=== PATIENT | male | born 1960 | race African-American/Black ===

== ENCOUNTER 2020-03-11 17:22 | Inpatient (IN) | payer OTHER ==
--- NOTE | 2020-03-11 19:29 | BHS.RME ---
Substance Use & Tx History - Substance Use History Alcohol Substance amount: 4- 26 oz beers Frequency of use: Daily Substance route: Oral Date of Last Use: 03/10/20 Marijuana/Hashish Substance amount: 1 joint Frequency of use: Less than 3 times per week Substance route: Smoking Date of Last Use: 03/03/20 - Last Treatment Date of last treatment: 03/11/20 Treatment type: Substance Use Disorder (KATE) Where was last treatment: ER (Seen in [facility] today and referred to [facility] for detox.) Physical/Psych/Mental Status - Behavior General Behavior: Increased activity (restlessness, agitation) Eye Contact: Normal - Cooperativeness Cooperativeness: Cooperative - Thinking Thought Processes: Goal Directed Thought content: Future oriented - Physical Health Problems Is patient presently having any pain?: Yes (feeet pain - chronic) Does patient presently have any injuries (include location): No Does patient currently have a fever: No CIWA Nausea/Vomitin-Mild Nausea/No Vomiting Muscle Tremors: 4-Moderate,w/Arms Extend Anxiety: 4-Mod. Anxious/Guarded Agitation: 4-Moderately Restless Paroxysmal Sweats: 3 Orientation: 0-Oriented Tacttile Disturbances: 0-None Auditory Disturbances: 0-None Visual Disturbances: 0-None Headache: 4-Moderately Severe (Throbbig headache '8" -Frontal area) CIWA-Ar Total Score: 20
--- NOTE | 2020-03-11 19:33 | HP ---
CIWA Score Nausea/Vomitin-Mild Nausea/No Vomiting Muscle Tremors: 4-Moderate,w/Arms Extend Anxiety: 4-Mod. Anxious/Guarded Agitation: 4-Moderately Restless Paroxysmal Sweats: 3 Orientation: 0-Oriented Tacttile Disturbances: 0-None Auditory Disturbances: 0-None Visual Disturbances: 0-None Headache: 4-Moderately Severe (Throbbig headache '8" -Frontal area) CIWA-Ar Total Score: 20 - Admission Criteria OASAS Guidelines: Admission for Medically Managed Detox: Requires at least one of the followin. CIWA greater than 12 2. Seizures within the past 24 hours 3. Delirium tremens within the past 24 hours 4. Hallucinations within the past 24 hours 5. Acute intervention needed for co occurring medical disorder 6. Acute intervention needed for co occurring psychiatric disorder 7. Severe withdrawal that cannot be handled at a lower level of care (continued vomiting, continued diarrhea, abnormal vital signs) requiring intravenous medication and/or fluids 8. Patient presents the following: CIWA greater than 12 Admission Criteria Met: Admission criteria met Admission ROS [facility] - [facility] Chief Complaint: "I really need to stop this drinking. I'm so sick" Allergies/Adverse Reactions: Allergies Allergy/AdvReac Type Severity Reaction Status Date / Time No Known Allergies Allergy Verified 03/11/20 20:11 History of Present Illness: 59 yo w/ alcohol withdrawal seeking detox. Seen in [facility] today for alcohol withdrawal syndrome and referred to [facility] for detox. Discharge papers reviewed. Received Amlodopine, Libruim, folic acid, Ativan, and Thiamine while in [facility]. Labs drawn but no results enclosed. Denies seizures. Blackouts - last 1 month ago. Denies overdoses. Alcohol use began at age 17. Drinks 4- 26 oz beers daily. Marijuana use began at age 17. Nicotine use began at age 17. PMHx: Irregular heart beat; HTN; (non-compliant w/ meds); foot pain; Blind (R) eye; Hx COVID. MHHx: Depression. Denies thoughts of harming self or others. SHx: Homeless. Unemployed. Search Terms: Can Lantigua, 1960 Search Date: 03/11/2020 19:32:45 PM The Drug Utilization Report below displays all of the controlled substance prescriptions, if any, that your patient has filled in the last twelve months. The information displayed on this report is compiled from pharmacy submissions to the Department, and accurately reflects the information as submitted by the pharmacies. This report was requested by: Nati Stahl | Reference #: [id number] There are no results for the search terms that you entered. Exam Limitations: No Limitations - Ebola screening Have you traveled outside of the country in the last 21 days: No (Had COVID - 2 months ago.) Have you had contact with anyone from an Ebola affected area: No Have you been sick,other than usual withdrawal symptoms: No Do you have a fever: No - Review of Systems Constitutional: Chills, Diaphoresis, Changes in sleep (Difficulty staying asleep), Weight Stable EENT: reports: Blurred Vision, Other (Blind in (R) eye) Respiratory: reports: No Symptoms reported Cardiac: reports: Irregular Heart Rate (Heart pills - never filled.) GI: reports: Nausea, Vomiting (earlier today), Indigestion (Heart burn -) : reports: Other (Hesitentcy - has not had a exam) Musculoskeletal: reports: Back Pain (Intermittent back pain. No pain @ this time.), Other (Leg and hand spasms. Use cane for balance.) Integumentary: reports: No Symptoms Reported Neuro: reports: Headache (Throbbig headache '8" -Frontal area), Tremors Endocrine: reports: Increased Thirst Hematology: reports: No Symptoms Reported Psychiatric: reports: Orientated x3, Agitated, Anxious, Depressed (Denies thoughts of harming self or others.) Patient History - PPD History Previous Implant?: Yes Documented Results: Negative w/o proof Implanted On Prior R Admission?: No PPD to be Administered?: Yes - Smoking Cessation Smoking history: Never smoked Have you smoked in the past 12 months: No Hx Chewing Tobacco Use: No Initiated information on smoking cessation: No - Substance & Tx. History Hx Alcohol Use: Yes Hx Substance Use: Yes Substance Use Type: Alcohol, Marijuana Hx Substance Use Treatment: Yes (years ago) Admission Physical Exam BHS - Physical General Appearance: Yes: Nourished, Moderate Distress, Obese, Tremorous, Irritable, Sweating, Anxious HEENTM: Yes: Hearing grossly Normal, MAHENDRA ((L) pupil responds to light), Pharynx Normal, Orbits ((R) abnormal orbit/r/t trauma), Other ((R) no- vision r/t trauma) Respiratory: Yes: Lungs Clear, Normal Breath Sounds, No Respiratory Distress Neck: Yes: No masses,lesions,Nodules, Supple Breast: Yes: Breast Exam Deferred Cardiology: Yes: Regular Rhythm, S1, S2, Edema (1+ pittiing Edema BLE toes to mid-calf), Tachycardia (HR: 104) Abdominal: Yes: Non Tender, Soft, Increased Bowel Sounds, Protuberent (Increased abdominal adiposity) Genitourinary: Yes: Within Normal Limits Back: Yes: Normal Inspection Musculoskeletal: Yes: Other (gait unsteady) Extremities: Yes: Normal Capillary Refill, Tremors (Gross) Neurological: Yes: Fully Oriented, Alert, Motor Strength 5/5, Normal Response (Agitated) Integumentary: Yes: Normal Color, Dry (Very dry, scaly skin ovetr body.), Warm, Other (Severe cracking and thickeneing of skin on feet and between toes.) - Diagnostic (1) Alcohol dependence with withdrawal, uncomplicated Current Visit: Yes Status: Acute (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 Qualifiers: Left eye visual impairment category: left - unspecified low vision Qualified Code(s): H54.40 - Blindness, one eye, unspecified eye; H54.50 - Low vision, one eye, unspecified eye (3) HTN (hypertension) Current Visit: Yes Status: Chronic Qualifiers: Hypertension type: unspecified Qualified Code(s): I10 - Essential (primary) hypertension (4) Unsteady gait Current Visit: Yes Status: Chronic (5) Dry skin Current Visit: Yes Status: Chronic (6) Tinea pedis Current Visit: Yes Status: Chronic Qualifiers: Laterality: bilateral Qualified Code(s): B35.3 - Tinea pedis (7) Cannabis use disorder, mild, abuse Current Visit: Yes Status: Chronic (8) Edema Current Visit: Yes Status: Chronic Qualifiers: Edema type: unspecified Qualified Code(s): R60.9 - Edema, unspecified Cleared for Admission S - Detox or Rehab [facility] Level of Care: Medically Managed Detox Regimen/Protocol: Librium Claeared for Rehab Admission: No Breathalyzer - Breathalyzer Breathalyzer: 0 Urine Drug Screen - Test Device Lot number: [id number] Expiration date: 09/28/21 - Control Is test valid?: Yes - Results Drug screen NEGATIVE: No Urine drug screen results: THC-Marijuana Inpatient Rehab Admission - Rehab Decision to Admit Inpatient rehab admission?: No
[2020-03-11] MEDS ORDERED: BISMUTH SUBSALICYLATE 524 MG/30 ML UD PO PRN (20:11)
[2020-03-11] MEDS ORDERED: IBUPROFEN 400 MG TABLET (FP) PO PRN (20:11)
[2020-03-11] MEDS ORDERED: MAGNESIUM CITRATE 300 ML BOTTLE PO PRN (20:11)
[2020-03-11] MEDS ORDERED: METHOCARBAMOL 500 MG TABLET PO PRN (20:11)
[2020-03-11] MEDS ORDERED: MAGNESIUM HYDROX 2400MG/30ML ORAL SUSPENSION 30 ML CUP PO PRN (20:11)
[2020-03-11] MEDS ORDERED: MAG HYDROX/AL HYDROX/SIMETH 30 ML UNIT-DOSE CUP PO PRN (20:11)
[2020-03-11] MEDS ORDERED: ACETAMINOPHEN 325 MG TABLET (FP) PO PRN ×2 (20:11)
[2020-03-11] MEDS ORDERED: chlordiazePOXIDE HCL 25 MG CAPSULE PO ONE (20:11)
[2020-03-11] MEDS ORDERED: ONDANSETRON *ODT* 4 MG TABLET SL PRN (20:11)
[2020-03-11] MEDS ORDERED: MENTHOL/PHENOL 1 EACH UD MM PRN (20:11)
[2020-03-11] MEDS ORDERED: chlordiazePOXIDE HCL 25 MG CAPSULE PO PRN (20:11)
[2020-03-11] MEDS ORDERED: COLLOIDAL OATMEAL 1 BAR EACH TP PRN (20:14)
[2020-03-11] MEDS ORDERED: AMMONIUM LACTATE 12% LOTION 225 GM BOTTLE TP PRN (20:14)
[2020-03-11 20:39] VITALS: BMI 39.4
[2020-03-11] MEDS: chlordiazePOXIDE HCL 25 MG CAPSULE PO SCH (22:50)
[2020-03-11] MEDS: TOLNAFTATE 1% CREAM 15 GM TUBE TP SCH (22:50)
[2020-03-11] MEDS: THIAMINE HCL 100 MG TABLET (FP) PO SCH (22:51)
[2020-03-11] MEDS: MELATONIN 5 MG TABLETS PO SCH (22:54)
[2020-03-12] MEDS: chlordiazePOXIDE HCL 25 MG CAPSULE PO SCH ×4 (05:29→22:29)
--- NOTE | 2020-03-12 09:34 | EKG ---
Test Reason : Blood Pressure : / mmHG Vent. Rate : 104 BPM Atrial Rate : 104 BPM P-R Int : 140 ms QRS Dur : 084 ms QT Int : 366 ms P-R-T Axes : 063 052 053 degrees QTc Int : 481 ms SINUS TACHYCARDIA POSSIBLE LEFT ATRIAL ENLARGEMENT BORDERLINE ECG NO PREVIOUS ECGS AVAILABLE Confirmed by Lindsey Cox ([id number]) on 03/12/2020 9:33:51 AM Referred By: Confirmed By:Lindsey Cox
[2020-03-12] MEDS: PRENATAL VITAMINS W/ FOLIC ACID TABLET (FP) PO SCH (10:31)
[2020-03-12] MEDS: TOLNAFTATE 1% CREAM 15 GM TUBE TP SCH ×2 (10:31→22:29)
[2020-03-12] MEDS: HYDROCHLOROTHIAZIDE 12.5 MG CAPSULE (FP) PO SCH (10:32)
[2020-03-12 11:18] LABS: ALBUMIN 3.1 g/dl (3.4-5.0); BILIRUBIN,TOTAL 1.3 mg/dL (0.2-1); BLOOD UREA NITROGEN 14.4 mg/dL (7-18); CALCIUM 8.5 mg/dL (8.5-10.1); CREATININE 0.9 mg/dL (0.55-1.3); POTASSIUM 3.9 mmol/L (3.5-5.1); TOT PROT 6.6 g/dl (6.4-8.2)
[2020-03-12 11:46] LABS: HEMATOCRIT 32.7 % (35.4-49); HEMOGLOBIN 10.9 GM/dL (11.7-16.9); MCH 31.8 pg (25.7-33.7); MCHC 33.3 g/dl (32.0-35.9); MEAN CELL VOLUME 95.7 fl (80-96); MEAN PLT VOLUME 8.1 fl (7.5-11.1); PLATELET COUNT 138 K/MM3 (134-434); RBC 3.42 M/mm3 (4.00-5.60); RDW 13.8 % (11.9-15.9); WHITE BLOOD COUNT 2.9 K/mm3 (4.0-10.0)
--- NOTE | 2020-03-12 15:50 | PN ---
[facility] CIWA - CIWA Score Nausea/Vomitin Muscle Tremors: 2 Anxiety: 3 Agitation: 3 Paroxysmal Sweats: 3 Orientation: 0-Oriented Tacttile Disturbances: 1-Very Mild Itch/Numbness Auditory Disturbances: 0-None Visual Disturbances: 0-None Headache: 0-None Present CIWA-Ar Total Score: 14 [facility] Progress Note (SOAP) Subjective: Interrupted sleep Objective: 03/12/20 15:45 Last Vital Signs Temp Pulse Resp BP Pulse Ox 97.3 F L 86 16 145/75 97 03/12/20 12:35 03/12/20 12:35 03/12/20 12:35 03/12/20 12:35 03/12/20 12:35 Elevated b/p: has htn, on med Laboratory Tests 03/12/20 03/12/20 03/12/20 07:30 07:30 07:30 WBC 2.9 L RBC 3.42 L Hgb 10.9 L Hct 32.7 L MCV 95.7 MCH 31.8 MCHC 33.3 RDW 13.8 Plt Count 138 MPV 8.1 Sodium 140 Potassium 3.9 Chloride 108 H Carbon Dioxide 26 Anion Gap 6 L BUN 14.4 Creatinine 0.9 Est GFR (CKD-EPI)AfAm 107.22 Est GFR (CKD-EPI)NonAf 92.51 Random Glucose 93 Calcium 8.5 Total Bilirubin 1.3 H AST 30 ALT 37 Alkaline Phosphatase 60 Total Protein 6.6 Albumin 3.1 L Syphilis Serology Non-reactive Labs reviewed: pancytopenia, elevated total bilirubin and hypoalbuminemia noted Assessment: 03/12/20 15:47 Withdrawal sxs Pancytopenia, elevated total bilirubin and hypoalbuminemia noted Plan: Continue detox Encourage PO water intake HTN: monitor b/p, continue antihypertensive medication Pancytopenia: could be r/t alcoholism, encourage abstinence from alcohol/illicit drug use Elevated total bilirubin: could be r/t alcoholism, repeat total bilirubin Hypoalbuminemia: encourage diet
[2020-03-12] MEDS: THIAMINE HCL 100 MG TABLET (FP) PO SCH (22:29)
[2020-03-12] MEDS: MELATONIN 5 MG TABLETS PO SCH (22:29)
[2020-03-13] MEDS: chlordiazePOXIDE HCL 25 MG CAPSULE PO SCH ×4 (05:36→22:03)
--- NOTE | 2020-03-13 10:15 | PN ---
S CIWA - CIWA Score Nausea/Vomitin-Mild Nausea/No Vomiting Muscle Tremors: 2 Anxiety: 2 Agitation: 2 Paroxysmal Sweats: 1-Minimal Palms Moist Orientation: 0-Oriented Tacttile Disturbances: 1-Very Mild Itch/Numbness Auditory Disturbances: 0-None Visual Disturbances: 0-None Headache: 1-Very Mild CIWA-Ar Total Score: 10 [facility] Progress Note (SOAP) Subjective: alert,irritable,anxious,aching pain,interrupted sleep Objective: 03/13/20 12:50 Vital Signs Temperature 97.3 F L 03/13/20 08:37 Pulse Rate 82 03/13/20 08:37 Respiratory Rate 18 03/13/20 08:37 Blood Pressure 166/98 03/13/20 08:37 O2 Sat by Pulse Oximetry (%) 99 03/13/20 08:37 Assessment: 03/13/20 12:51 withdrawal symptom Plan: continue detox librium regimen
[2020-03-13] MEDS: PRENATAL VITAMINS W/ FOLIC ACID TABLET (FP) PO SCH (10:49)
[2020-03-13] MEDS: HYDROCHLOROTHIAZIDE 12.5 MG CAPSULE (FP) PO SCH (10:49)
[2020-03-13] MEDS: TOLNAFTATE 1% CREAM 15 GM TUBE TP SCH ×2 (10:49→22:03)
[2020-03-13] MEDS: MELATONIN 5 MG TABLETS PO SCH (22:03)
[2020-03-13] MEDS: THIAMINE HCL 100 MG TABLET (FP) PO SCH (22:04)
[2020-03-14] MEDS ORDERED: chlordiazePOXIDE HCL 10 MG CAPSULE PO PRN
[2020-03-14] MEDS: chlordiazePOXIDE HCL 10 MG CAPSULE PO SCH ×4 (06:09→22:19)
[2020-03-14] MEDS: cloNIDine HCL 0.1 MG TABLET PO PRN ×2 (06:13→22:19)
--- NOTE | 2020-03-14 09:32 | PN ---
S CIWA - CIWA Score Nausea/Vomitin-Mild Nausea/No Vomiting Muscle Tremors: 2 Anxiety: 1-Mildly Anxious Agitation: 1-Slight > Activity Paroxysmal Sweats: No Perspiration Orientation: 0-Oriented Tacttile Disturbances: 1-Very Mild Itch/Numbness Auditory Disturbances: 0-None Visual Disturbances: 0-None Headache: 1-Very Mild CIWA-Ar Total Score: 7 [facility] Progress Note (SOAP) Subjective: alert,irritable,anxious, interrupted sleep,aching pain.ambulation with cane Objective: 03/14/20 09:30 Vital Signs Temperature 96.8 F L 03/14/20 05:50 Pulse Rate 72 03/14/20 05:50 Respiratory Rate 18 03/14/20 05:50 Blood Pressure 162/95 03/14/20 05:50 O2 Sat by Pulse Oximetry (%) 97 03/14/20 05:50 Assessment: 03/14/20 09:30 withdrawal symptom Plan: continue detox librium regimen
[2020-03-14] MEDS: TOLNAFTATE 1% CREAM 15 GM TUBE TP SCH ×2 (10:29→22:19)
[2020-03-14] MEDS: HYDROCHLOROTHIAZIDE 12.5 MG CAPSULE (FP) PO SCH (10:29)
[2020-03-14] MEDS: PRENATAL VITAMINS W/ FOLIC ACID TABLET (FP) PO SCH (10:29)
[2020-03-14] MEDS: MELATONIN 5 MG TABLETS PO SCH (22:19)
[2020-03-14] MEDS: THIAMINE HCL 100 MG TABLET (FP) PO SCH (22:19)
[2020-03-15] MEDS: chlordiazePOXIDE HCL 10 MG CAPSULE PO SCH ×2 (05:42→18:59)
--- NOTE | 2020-03-15 09:29 | PN ---
[facility] CIWA - CIWA Score Nausea/Vomitin-Mild Nausea/No Vomiting Muscle Tremors: 2 Anxiety: 2 Agitation: 1-Slight > Activity Paroxysmal Sweats: No Perspiration Orientation: 0-Oriented Tacttile Disturbances: 0-None Auditory Disturbances: 0-None Visual Disturbances: 0-None Headache: 1-Very Mild CIWA-Ar Total Score: 7 S Progress Note (SOAP) Subjective: alert,irritable,anxious,interrupted sleep,ambulation with cane Objective: 03/15/20 15:08 Vital Signs Temperature 98.6 F 03/15/20 13:06 Pulse Rate 83 03/15/20 13:06 Respiratory Rate 20 03/15/20 13:06 Blood Pressure 127/59 L 03/15/20 13:06 O2 Sat by Pulse Oximetry (%) 98 03/15/20 13:06 Assessment: 03/15/20 15:09 withdrawal symptom Plan: continue detox librium regimen,discharge in am
[2020-03-15] MEDS: TOLNAFTATE 1% CREAM 15 GM TUBE TP SCH ×2 (10:40→23:00)
[2020-03-15] MEDS: HYDROCHLOROTHIAZIDE 12.5 MG CAPSULE (FP) PO SCH (10:40)
[2020-03-15] MEDS: PRENATAL VITAMINS W/ FOLIC ACID TABLET (FP) PO SCH (10:40)
[2020-03-15] MEDS: THIAMINE HCL 100 MG TABLET (FP) PO SCH (22:59)
[2020-03-15] MEDS: MELATONIN 5 MG TABLETS PO SCH (23:01)
[2020-03-16] MEDS ORDERED: chlordiazePOXIDE HCL 10 MG CAPSULE PO ONE (05:00)
[2020-03-16] MEDS: cloNIDine HCL 0.1 MG TABLET PO PRN (06:30)
--- NOTE | 2020-03-16 08:42 | DS ---
[facility] Detox Discharge Summary Admission Date: 03/11/20 Discharge Date: 03/16/20 - History Present History: Alcohol Dependence, Cannabis Dependence - Physical Exam Results Vital Signs: Vital Signs Temperature 97.5 F L 03/16/20 06:02 Pulse Rate 80 03/16/20 06:02 Respiratory Rate 16 03/16/20 06:02 Blood Pressure 195/119 H 03/16/20 06:02 O2 Sat by Pulse Oximetry (%) 96 03/16/20 06:02 Pertinent Admission Physical Exam Findings: Vital Signs Temperature 97.3 F L 03/16/20 09:05 Pulse Rate 81 03/16/20 09:05 Respiratory Rate 18 03/16/20 09:05 Blood Pressure 107/54 L 03/16/20 09:05 O2 Sat by Pulse Oximetry (%) 98 03/16/20 09:05 Laboratory Tests 03/11/20 03/12/20 03/12/20 08:53 07:30 07:30 WBC 2.9 L RBC 3.42 L Hgb 10.9 L Hct 32.7 L MCV 95.7 MCH 31.8 MCHC 33.3 RDW 13.8 Plt Count 138 MPV 8.1 Sodium 140 Potassium 3.9 Chloride 108 H Carbon Dioxide 26 Anion Gap 6 L BUN 14.4 Creatinine 0.9 Est GFR (CKD-EPI)AfAm 107.22 Est GFR (CKD-EPI)NonAf 92.51 Random Glucose 93 Calcium 8.5 Total Bilirubin 1.3 H AST 30 ALT 37 Alkaline Phosphatase 60 Total Protein 6.6 Albumin 3.1 L Syphilis Serology COVID-19 (ALEJA) Not detected 03/12/20 07:30 WBC RBC Hgb Hct MCV MCH MCHC RDW Plt Count MPV Sodium Potassium Chloride Carbon Dioxide Anion Gap BUN Creatinine Est GFR (CKD-EPI)AfAm Est GFR (CKD-EPI)NonAf Random Glucose Calcium Total Bilirubin AST ALT Alkaline Phosphatase Total Protein Albumin Syphilis Serology Non-reactive COVID-19 (ALEJA) labs noted aaox3 ambulating no acute distress - Treatment Hospital Course: Detox Protocol Followed, Detoxed Safely, Responded well, Discharged Condition Good, Rehab Referral Accepted - Medication Discharge Medications: Ambulatory Orders Amlodipine Besylate 5 mg PO DAILY #30 tablet 01/12/18 Carvedilol [Coreg -] 6.25 mg PO BID #60 tablet 01/12/18 NK [No Known Home Medication] 03/11/20 - Diagnosis (1) Alcohol dependence with withdrawal, uncomplicated Current Visit: Yes Status: Chronic (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 Qualifiers: Left eye visual impairment category: left - unspecified low vision Qualified Code(s): H54.40 - Blindness, one eye, unspecified eye; H54.50 - Low vision, one eye, unspecified eye (3) Cannabis use disorder, mild, abuse Current Visit: Yes Status: Chronic (4) Dry skin Current Visit: Yes Status: Chronic (5) Edema Current Visit: Yes Status: Chronic Qualifiers: Edema type: unspecified Qualified Code(s): R60.9 - Edema, unspecified (6) HTN (hypertension) Current Visit: Yes Status: Chronic Qualifiers: Hypertension type: unspecified Qualified Code(s): I10 - Essential (primary) hypertension (7) Tinea pedis Current Visit: Yes Status: Chronic Qualifiers: Laterality: bilateral Qualified Code(s): B35.3 - Tinea pedis (8) Unsteady gait Current Visit: Yes Status: Chronic (9) Alcohol dependence with uncomplicated intoxication Current Visit: No Status: Acute (10) Leg edema, left Current Visit: No Status: Acute (11) Blind right eye Current Visit: No Status: Chronic (12) Cannabis dependence with uncomplicated intoxication Current Visit: No Status: Chronic (13) Hypertension Current Visit: No Status: Chronic Qualifiers: Hypertension type: essential hypertension Qualified Code(s): I10 - Essential (primary) hypertension (14) Obese Current Visit: No Status: Chronic Qualifiers: Obesity type: unspecified obesity type Obesity classification: adult class 3 (BMI >= 40) Serious obesity comorbidity presence: unspecified whether serious comorbidity present Body mass index: BMI 40.0-44.9 Qualified Code(s): E66.9 - Obesity, unspecified; Z68.41 - Body mass index (BMI) 40.0-44.9, adult - AMA Did Patient Leave Against Medical Advice: No
[2020-03-16 09:40] VITALS: BP 107/54; PULSE 81; TEMP 97.3
[2020-03-16] MEDS: PRENATAL VITAMINS W/ FOLIC ACID TABLET (FP) PO SCH (09:59)
[2020-03-16] MEDS: TOLNAFTATE 1% CREAM 15 GM TUBE TP SCH (09:59)
[2020-03-16] MEDS: HYDROCHLOROTHIAZIDE 12.5 MG CAPSULE (FP) PO SCH (09:59)
== END 2020-03-16 01:45 | disposition other institution (70) | DRG 775 ==
LOC: YASAS 17:22 → Y6N 20:33
PROVIDERS: ADMIT Allergy & Immunology; ATTEND Allergy & Immunology
PROC: HZ2ZZZZ Detoxification Services for Substance Abuse Treatment (ICD-10-PCS; principal; 2020-03-11)
DX: F10.230 Alcohol dependence with withdrawal, uncomplicated (principal); F12.20 Cannabis dependence, uncomplicated; F32.9 Major depressive disorder, single episode, unspecified; D61.818 Other pancytopenia; E88.09 Other disorders of plasma-protein metabolism, not elsewhere classified; E80.6 Other disorders of bilirubin metabolism; I10 Essential (primary) hypertension; H54.61 Unqualified visual loss, right eye, normal vision left eye; B35.3 Tinea pedis; L85.3 Xerosis cutis; R60.0 Localized edema; R26.89 Other abnormalities of gait and mobility; R00.0 Tachycardia, unspecified; E66.9 Obesity, unspecified; Z68.39 Body mass index [BMI] 39.0-39.9, adult; Z59.0 Homelessness
CPT/HCPCS: 36415; 80053; 85027; 86780; 93005; 93010; J0735; U0003

== ENCOUNTER 2020-03-16 13:50 | Inpatient (IN) | payer OTHER ==
[~2020-03-16 13:50] MED LIST: ACETAMINOPHEN 325 MG TABLET (FP) PO PRN; LOPERAMIDE HCL 2 MG CAPSULE PO PRN; MAG HYDROX/AL HYDROX/SIMETH 30 ML UNIT-DOSE CUP PO PRN; MAGNESIUM CITRATE 300 ML BOTTLE PO PRN; MAGNESIUM HYDROX 2400MG/30ML ORAL SUSPENSION 30 ML CUP PO PRN; MENTHOL/PHENOL 1 EACH UD MM PRN; NICOTINE POLACRILEX 2 MG GUM BUC PRN; P-EPHED 60MG/TRIPROLIDI 2.5MG TABLET PO PRN; guaiFENesin 200 MG/10 ML 10 ML UNIT-DOSE CUPS PO PRN
--- OUTSIDE RECORDS SUMMARY | 2020-03-16 15:26 | XMS ---
:1960 Author Organization [facility] Support Name Relationship Address Phone UE Unavailable Unavailable Unavailable MARLENI, JOVANI [address] [facility] [address] [phone] [place] [address] MARLENI, JOVANI Spouse [address] [facility] [address] [address] Re-disclosure Warning The records that you are about to access may contain information from federally- assisted alcohol or drug abuse programs. If such information is present, then the following federally mandated warning applies: This information has been disclosed to you from records protected by federal confidentiality rules (42 CFR part 2). The federal rules prohibit you from making any further disclosure of this information unless further disclosure is expressly permitted by the written consent of the person to whom it pertains or as otherwise permitted by 42 CFR part 2. A general authorization for the release of medical or other information is NOT sufficient for this purpose. The Federal rules restrict any use of the information to criminally investigate or prosecute any alcohol or drug abuse patient.The records that you are about to access may contain highly sensitive health information, the redisclosure of which is protected by Article 27-F of the [facility] Public Health law. If you continue you may haveaccess to information: Regarding HIV / AIDS; Provided by facilities licensed or operated by the [facility] Office of Mental Health; or Provided by the [facility] Office for People With Developmental Disabilities. If such information is present, then the following [facility] mandated warning applies: This information has been disclosed to you from confidential records which are protected by state law. State law prohibits you from making any further disclosure of this information without the specific written consent of the person to whom it pertains, or as otherwise permitted by law. Any unauthorized further disclosure in violation of state law may result in a fine or nursing home sentence or both. A general authorization for the release of medical or other information is NOT sufficient authorization for further disclosure. Insurance Providers Payer name Policy type Policy ID Covered Covered constitution party's Policy P vijay / Coverage constitution party ID relationship to Mccabe Inf ormation type mccabe BEACON [id number] [employer] [id number] [employer]
--- OUTSIDE RECORDS SUMMARY | 2020-03-16 15:36 | XMS ---
:1960 Author Organization [facility] Support Name Relationship Address Phone UE Unavailable Unavailable Unavailable MARLENI, JOVANI [address] [facility] [address] [address] MARLENI, JOVANI Spouse [address] [facility] [address] [address] Re-disclosure Warning The records that you are [...] is protected by Article 27-F of the [facility] Public Health law. If you continue you may haveaccess to information: Regarding HIV / AIDS; Provided by facilities licensed or operated by the [facility] Office of Mental Health; or Provided by the [facility] Office for People With Developmental Disabilities. If such information is present, then the following [facility] mandated warning applies: This information has been [...] law may result in a fine or usp sentence or both. A general authorization for the release of medical or other information is NOT sufficient authorization for further disclosure. Insurance Providers Payer name Policy type Policy ID Covered Covered green party's Policy P vijay / Coverage green party ID relationship to Mccabe Inf ormation type mccabe BEACON [id number] [employer] [id number] [employer]
[2020-03-16] MEDS: THIAMINE HCL 100 MG TABLET (FP) PO SCH (21:40)
[2020-03-16] MEDS: hydrOXYzine PAMOATE 25 MG CAPSULE (FP) PO PRN (21:41)
[2020-03-16] MEDS: MELATONIN 5 MG TABLETS PO SCH (21:41)
[2020-03-17] MEDS: NICOTINE 7 MG/24 HOURS TOPICAL PATCH TD SCH (09:55)
[2020-03-17] MEDS: IBUPROFEN 400 MG TABLET (FP) PO PRN (09:56)
[2020-03-17] MEDS: PRENATAL VITAMINS W/ FOLIC ACID TABLET (FP) PO SCH (09:56)
[2020-03-17] MEDS: hydrOXYzine PAMOATE 25 MG CAPSULE (FP) PO PRN ×2 (09:57→21:00)
--- NOTE | 2020-03-17 10:47 | HP ---
[facility] Rehab Assess/Revision - Admission History Admitted to Rehab from: [facility] [place] Date of Admission to Rehab: 03/16/20 - Vital signs Vital Signs: Vital Signs Period Temp Pulse Resp BP Sys/Garcia Pulse Ox Last 24 Hr 97.0 F-98 F 75-88 18-18 141-143/71-92 96-99 - Findings Detox History & Physical reviewed: Yes Concur with findings: Yes Comments/Additional Findings: Pt is a 60 y/o male with a hx of alcohol use disorder admitted to rehab yesterday from [facility]. Pt reports he [facility] to [facility] for Primary care needs. PMHx:HTN(no med); Right eye blindness;LEs edema Left > Right-right ankle sx with screws in place; Obesity. Alert o x 3. nad. oob ambulating with cane, slowly. MSK/extremities:Limited ROM to hips; LEs edema Left > Right. New rehab pt. AUD. HTN(no med). Increase po fluids. maintain safety. d/w pt will order Lidocaine patch to lower back as directed. Inpatient Rehab Admission - Rehab Decision to Admit Inpatient rehab admission?: Yes - Initial Determination Are CD services needed?: Yes Free of communicable disease: Yes Not in need of hospitalization: Yes - Rehab Admission Criteria Previous failed treatment: Yes Poor recovery environment: Yes Comorbidities: Yes Lacks judgement: Yes Patient is meeting Inpatient Rehab admission criteria:: Yes
[2020-03-17] MEDS: LIDOCAINE 5% TOPICAL PATCH TP SCH (14:19)
[2020-03-17] MEDS ORDERED: HYDROCHLOROTHIAZIDE 25 MG TABLET (FP) PO ONE (16:06)
[2020-03-17] MEDS: THIAMINE HCL 100 MG TABLET (FP) PO SCH (21:00)
[2020-03-17] MEDS: MELATONIN 5 MG TABLETS PO SCH (21:00)
[2020-03-17] MEDS ORDERED: LIDOCAINE PATCH REMOVAL MC SCH (22:00)
[2020-03-18] MEDS: LIDOCAINE 5% TOPICAL PATCH TP SCH (10:42)
[2020-03-18] MEDS: PRENATAL VITAMINS W/ FOLIC ACID TABLET (FP) PO SCH (10:42)
[2020-03-18] MEDS: NICOTINE 7 MG/24 HOURS TOPICAL PATCH TD SCH (10:42)
[2020-03-18] MEDS: HYDROCHLOROTHIAZIDE 12.5 MG CAPSULE (FP) PO SCH (10:42)
[2020-03-18] MEDS: LIDOCAINE PATCH REMOVAL MC SCH (10:42)
[2020-03-18] MEDS: hydrOXYzine PAMOATE 25 MG CAPSULE (FP) PO PRN ×2 (10:44→21:41)
[2020-03-18] MEDS: MELATONIN 5 MG TABLETS PO SCH (21:41)
[2020-03-18] MEDS: THIAMINE HCL 100 MG TABLET (FP) PO SCH (21:41)
[2020-03-19] MEDS: HYDROCHLOROTHIAZIDE 12.5 MG CAPSULE (FP) PO SCH ×2 (06:45→10:19)
[2020-03-19] MEDS: LIDOCAINE 5% TOPICAL PATCH TP SCH (10:19)
[2020-03-19] MEDS: PRENATAL VITAMINS W/ FOLIC ACID TABLET (FP) PO SCH (10:20)
[2020-03-19] MEDS: NICOTINE 7 MG/24 HOURS TOPICAL PATCH TD SCH (10:20)
[2020-03-19] MEDS: LIDOCAINE PATCH REMOVAL MC SCH (10:20)
[2020-03-19] MEDS: hydrOXYzine PAMOATE 25 MG CAPSULE (FP) PO PRN ×2 (10:21→21:45)
[2020-03-19] MEDS: MELATONIN 5 MG TABLETS PO SCH (21:45)
[2020-03-19] MEDS: THIAMINE HCL 100 MG TABLET (FP) PO SCH (21:45)
[2020-03-20] MEDS ORDERED: cloNIDine HCL 0.1 MG TABLET PO ONE (07:40)
--- NOTE | 2020-03-20 07:42 | PN ---
S Progress Note Note: Patient's blood pressure is B/P 173/99 and B/P 171/105 respectively. Patient is asymptomatic. Vital Signs 03/20/20 03/20/20 07:35 07:40 Temperature 97.0 F L Pulse Rate 82 Respiratory 18 Rate Blood Pressure 173/99 H 171/105 H O2 Sat by Pulse 96 Oximetry (%) Action: Clonidine HCL 0.1mg tablet oral daily
[2020-03-20] MEDS: NICOTINE 7 MG/24 HOURS TOPICAL PATCH TD SCH (10:55)
[2020-03-20] MEDS: PRENATAL VITAMINS W/ FOLIC ACID TABLET (FP) PO SCH (10:55)
[2020-03-20] MEDS: HYDROCHLOROTHIAZIDE 12.5 MG CAPSULE (FP) PO SCH (10:55)
[2020-03-20] MEDS: LIDOCAINE 5% TOPICAL PATCH TP SCH (10:55)
[2020-03-20] MEDS: hydrOXYzine PAMOATE 25 MG CAPSULE (FP) PO PRN ×2 (10:56→22:01)
[2020-03-20] MEDS: LIDOCAINE PATCH REMOVAL MC SCH ×2 (16:26→22:00)
[2020-03-20] MEDS: MELATONIN 5 MG TABLETS PO SCH (22:01)
[2020-03-20] MEDS: THIAMINE HCL 100 MG TABLET (FP) PO SCH (22:01)
[2020-03-21] MEDS: HYDROCHLOROTHIAZIDE 12.5 MG CAPSULE (FP) PO SCH (09:15)
[2020-03-21] MEDS: LIDOCAINE 5% TOPICAL PATCH TP SCH (09:15)
[2020-03-21] MEDS: IBUPROFEN 400 MG TABLET (FP) PO PRN (09:16)
[2020-03-21] MEDS: hydrOXYzine PAMOATE 25 MG CAPSULE (FP) PO PRN ×2 (09:16→21:29)
[2020-03-21] MEDS: NICOTINE 7 MG/24 HOURS TOPICAL PATCH TD SCH (09:18)
[2020-03-21] MEDS: PRENATAL VITAMINS W/ FOLIC ACID TABLET (FP) PO SCH (09:18)
--- NOTE | 2020-03-21 09:30 | PN ---
[facility] Progress Note Note: Pt is a poor historian re:BP med/treatment. Unable to verify recent medications on patient. Pt was on Coreg and Norvasc here in past admissions. BP elevations and needs controlling. Vital Signs (72 hours) 03/18/20 03/18/20 03/19/20 12:30 18:39 06:21 Temperature 97.8 F Pulse Rate Respiratory 18 Rate Blood Pressure O2 Sat by Pulse 97 97 99 Oximetry (%) 03/19/20 03/19/20 03/19/20 08:33 13:30 18:34 Temperature Pulse Rate 102 H Respiratory Rate Blood Pressure 129/71 O2 Sat by Pulse 95 96 Oximetry (%) 03/20/20 03/20/20 03/20/20 07:35 07:40 10:00 Temperature 97.0 F L Pulse Rate 82 90 Respiratory 18 18 Rate Blood Pressure 173/99 H 171/105 H 138/82 O2 Sat by Pulse 96 Oximetry (%) 03/20/20 03/20/20 03/21/20 15:00 20:35 06:00 Temperature 97.1 F L Pulse Rate 74 Respiratory 18 Rate Blood Pressure 177/107 H O2 Sat by Pulse 98 97 97 Oximetry (%) Alert o x 3 nad oob ambulating with steady gait reorder meds d/w pt about his meds-coreg and norvasc as directed
[2020-03-21] MEDS: CARVEDILOL 6.25 MG TABLET (FP) PO SCH ×2 (10:48→21:30)
[2020-03-21] MEDS: amLODIPine BESYLATE 5 MG TABLET (FP) PO SCH (10:48)
[2020-03-21] MEDS: THIAMINE HCL 100 MG TABLET (FP) PO SCH (21:30)
[2020-03-21] MEDS: LIDOCAINE PATCH REMOVAL MC SCH (21:30)
[2020-03-21] MEDS: MELATONIN 5 MG TABLETS PO SCH (21:30)
[2020-03-22] MEDS: HYDROCHLOROTHIAZIDE 12.5 MG CAPSULE (FP) PO SCH (09:41)
[2020-03-22] MEDS: amLODIPine BESYLATE 5 MG TABLET (FP) PO SCH (09:41)
[2020-03-22] MEDS: CARVEDILOL 6.25 MG TABLET (FP) PO SCH ×2 (09:41→21:51)
[2020-03-22] MEDS: NICOTINE 7 MG/24 HOURS TOPICAL PATCH TD SCH (09:41)
[2020-03-22] MEDS: LIDOCAINE 5% TOPICAL PATCH TP SCH (09:41)
[2020-03-22] MEDS: PRENATAL VITAMINS W/ FOLIC ACID TABLET (FP) PO SCH (09:42)
[2020-03-22] MEDS: LIDOCAINE PATCH REMOVAL MC SCH (21:51)
[2020-03-22] MEDS: hydrOXYzine PAMOATE 25 MG CAPSULE (FP) PO PRN (21:51)
[2020-03-22] MEDS: THIAMINE HCL 100 MG TABLET (FP) PO SCH (21:51)
[2020-03-22] MEDS: MELATONIN 5 MG TABLETS PO SCH (22:33)
[2020-03-23] MEDS: CARVEDILOL 6.25 MG TABLET (FP) PO SCH ×2 (07:34→21:29)
[2020-03-23] MEDS: amLODIPine BESYLATE 10 MG TABLET (FP) PO SCH (07:34)
[2020-03-23] MEDS: PRENATAL VITAMINS W/ FOLIC ACID TABLET (FP) PO SCH (10:54)
[2020-03-23] MEDS: HYDROCHLOROTHIAZIDE 12.5 MG CAPSULE (FP) PO SCH (10:55)
[2020-03-23] MEDS: LIDOCAINE 5% TOPICAL PATCH TP SCH (10:55)
[2020-03-23] MEDS: NICOTINE 7 MG/24 HOURS TOPICAL PATCH TD SCH (10:55)
[2020-03-23] MEDS: LIDOCAINE PATCH REMOVAL MC SCH (21:29)
[2020-03-23] MEDS: MELATONIN 5 MG TABLETS PO SCH (21:29)
[2020-03-23] MEDS: hydrOXYzine PAMOATE 25 MG CAPSULE (FP) PO PRN (21:29)
[2020-03-23] MEDS: THIAMINE HCL 100 MG TABLET (FP) PO SCH (21:29)
[2020-03-24] MEDS: amLODIPine BESYLATE 10 MG TABLET (FP) PO SCH (07:43)
[2020-03-24] MEDS: CARVEDILOL 6.25 MG TABLET (FP) PO SCH ×2 (07:43→21:25)
[2020-03-24] MEDS: HYDROCHLOROTHIAZIDE 12.5 MG CAPSULE (FP) PO SCH (09:24)
[2020-03-24] MEDS: IBUPROFEN 400 MG TABLET (FP) PO PRN (09:24)
[2020-03-24] MEDS: NICOTINE 7 MG/24 HOURS TOPICAL PATCH TD SCH (09:25)
[2020-03-24] MEDS: LIDOCAINE 5% TOPICAL PATCH TP SCH (09:25)
[2020-03-24] MEDS: PRENATAL VITAMINS W/ FOLIC ACID TABLET (FP) PO SCH (09:26)
[2020-03-24] MEDS: THIAMINE HCL 100 MG TABLET (FP) PO SCH (21:25)
[2020-03-24] MEDS: hydrOXYzine PAMOATE 25 MG CAPSULE (FP) PO PRN (21:25)
[2020-03-24] MEDS: MELATONIN 5 MG TABLETS PO SCH (21:25)
[2020-03-24] MEDS: LIDOCAINE PATCH REMOVAL MC SCH (21:26)
[2020-03-25] MEDS: amLODIPine BESYLATE 10 MG TABLET (FP) PO SCH (06:55)
[2020-03-25] MEDS: CARVEDILOL 6.25 MG TABLET (FP) PO SCH ×2 (06:55→21:46)
[2020-03-25] MEDS: HYDROCHLOROTHIAZIDE 12.5 MG CAPSULE (FP) PO SCH (09:57)
[2020-03-25] MEDS: PRENATAL VITAMINS W/ FOLIC ACID TABLET (FP) PO SCH (09:57)
[2020-03-25] MEDS: NICOTINE 7 MG/24 HOURS TOPICAL PATCH TD SCH (09:58)
[2020-03-25] MEDS: LIDOCAINE 5% TOPICAL PATCH TP SCH (09:58)
[2020-03-25] MEDS: hydrOXYzine PAMOATE 25 MG CAPSULE (FP) PO PRN (09:58)
[2020-03-25] MEDS: MELATONIN 5 MG TABLETS PO SCH (21:44)
[2020-03-25] MEDS: LIDOCAINE PATCH REMOVAL MC SCH (21:44)
[2020-03-25] MEDS: THIAMINE HCL 100 MG TABLET (FP) PO SCH (21:44)
[2020-03-26] MEDS: amLODIPine BESYLATE 10 MG TABLET (FP) PO SCH (06:52)
[2020-03-26] MEDS: CARVEDILOL 6.25 MG TABLET (FP) PO SCH ×2 (06:52→21:48)
[2020-03-26] MEDS: PRENATAL VITAMINS W/ FOLIC ACID TABLET (FP) PO SCH (10:12)
[2020-03-26] MEDS: hydrOXYzine PAMOATE 25 MG CAPSULE (FP) PO PRN ×2 (10:13→21:50)
[2020-03-26] MEDS: HYDROCHLOROTHIAZIDE 12.5 MG CAPSULE (FP) PO SCH (10:13)
[2020-03-26] MEDS: IBUPROFEN 400 MG TABLET (FP) PO PRN (10:13)
[2020-03-26] MEDS: LIDOCAINE 5% TOPICAL PATCH TP SCH (10:14)
[2020-03-26] MEDS: NICOTINE 7 MG/24 HOURS TOPICAL PATCH TD SCH (10:14)
[2020-03-26] MEDS: MELATONIN 5 MG TABLETS PO SCH (21:48)
[2020-03-26] MEDS: THIAMINE HCL 100 MG TABLET (FP) PO SCH (21:48)
[2020-03-26] MEDS: LIDOCAINE PATCH REMOVAL MC SCH (21:53)
[2020-03-27] MEDS: amLODIPine BESYLATE 10 MG TABLET (FP) PO SCH (07:43)
[2020-03-27] MEDS: CARVEDILOL 6.25 MG TABLET (FP) PO SCH ×2 (07:43→20:17)
[2020-03-27] MEDS: HYDROCHLOROTHIAZIDE 12.5 MG CAPSULE (FP) PO SCH (09:48)
[2020-03-27] MEDS: PRENATAL VITAMINS W/ FOLIC ACID TABLET (FP) PO SCH (09:48)
[2020-03-27] MEDS: NICOTINE 7 MG/24 HOURS TOPICAL PATCH TD SCH (09:49)
[2020-03-27] MEDS: LIDOCAINE 5% TOPICAL PATCH TP SCH (09:49)
[2020-03-27] MEDS: hydrOXYzine PAMOATE 25 MG CAPSULE (FP) PO PRN ×2 (09:50→21:39)
[2020-03-27] MEDS: LIDOCAINE PATCH REMOVAL MC SCH (21:38)
[2020-03-27] MEDS: THIAMINE HCL 100 MG TABLET (FP) PO SCH (21:39)
[2020-03-27] MEDS: MELATONIN 5 MG TABLETS PO SCH (21:39)
[2020-03-28] MEDS: CARVEDILOL 6.25 MG TABLET (FP) PO SCH ×2 (06:59→21:35)
[2020-03-28] MEDS: amLODIPine BESYLATE 10 MG TABLET (FP) PO SCH (06:59)
[2020-03-28] MEDS: PRENATAL VITAMINS W/ FOLIC ACID TABLET (FP) PO SCH (10:39)
[2020-03-28] MEDS: NICOTINE 7 MG/24 HOURS TOPICAL PATCH TD SCH (10:40)
[2020-03-28] MEDS: LIDOCAINE 5% TOPICAL PATCH TP SCH (10:40)
[2020-03-28] MEDS: HYDROCHLOROTHIAZIDE 12.5 MG CAPSULE (FP) PO SCH (10:40)
[2020-03-28] MEDS: hydrOXYzine PAMOATE 25 MG CAPSULE (FP) PO PRN (21:35)
[2020-03-28] MEDS: LIDOCAINE PATCH REMOVAL MC SCH (21:35)
[2020-03-28] MEDS: THIAMINE HCL 100 MG TABLET (FP) PO SCH (21:35)
[2020-03-28] MEDS: MELATONIN 5 MG TABLETS PO SCH (21:35)
[2020-03-29] MEDS: amLODIPine BESYLATE 10 MG TABLET (FP) PO SCH (07:10)
[2020-03-29] MEDS: CARVEDILOL 6.25 MG TABLET (FP) PO SCH ×2 (07:10→21:39)
[2020-03-29] MEDS: PRENATAL VITAMINS W/ FOLIC ACID TABLET (FP) PO SCH (09:27)
[2020-03-29] MEDS: HYDROCHLOROTHIAZIDE 12.5 MG CAPSULE (FP) PO SCH (09:28)
[2020-03-29] MEDS: NICOTINE 7 MG/24 HOURS TOPICAL PATCH TD SCH (09:28)
[2020-03-29] MEDS: LIDOCAINE 5% TOPICAL PATCH TP SCH (09:28)
[2020-03-29] MEDS: hydrOXYzine PAMOATE 25 MG CAPSULE (FP) PO PRN ×2 (09:29→21:39)
[2020-03-29] MEDS: MELATONIN 5 MG TABLETS PO SCH (21:39)
[2020-03-29] MEDS: LIDOCAINE PATCH REMOVAL MC SCH (21:39)
[2020-03-29] MEDS: THIAMINE HCL 100 MG TABLET (FP) PO SCH (21:39)
[2020-03-30 08:08] VITALS: BP 156/89; PULSE 88; TEMP 97.5
[2020-03-30] MEDS: CARVEDILOL 6.25 MG TABLET (FP) PO SCH (08:43)
[2020-03-30] MEDS: amLODIPine BESYLATE 10 MG TABLET (FP) PO SCH (08:43)
[2020-03-30] MEDS: NICOTINE 7 MG/24 HOURS TOPICAL PATCH TD SCH (09:27)
[2020-03-30] MEDS: LIDOCAINE 5% TOPICAL PATCH TP SCH (09:27)
[2020-03-30] MEDS: PRENATAL VITAMINS W/ FOLIC ACID TABLET (FP) PO SCH (09:28)
[2020-03-30] MEDS: HYDROCHLOROTHIAZIDE 12.5 MG CAPSULE (FP) PO SCH (09:28)
--- NOTE | 2020-03-30 12:12 | DS ---
[facility] Rehab Discharge Summary - [facility] Rehab Discharge Summary Admission Date: 03/16/20 Discharge Date: 03/30/20 - History Present History: Alcohol dependence, Cannabis dependence Pertinent Past History: HTN Chronic edema, left leg-s/p sx with hardware Obesity Right Eye Blindness - Discharge Physical Exam Vital Signs: Vital Signs Temperature 97.5 F L 03/30/20 06:43 Pulse Rate 88 03/30/20 06:43 Respiratory Rate 18 03/30/20 06:43 Blood Pressure 156/89 03/30/20 06:43 O2 Sat by Pulse Oximetry (%) 97 03/30/20 06:43 Pertinent Admission Physical Exam Findings: Unremarkable Walks with a cane - Treatment Discharge Condition: Discharge condition good, Rehabilitated safely, Responded well, Outpatient referral accepted Hospital Course: Pt completed rehab and discharged today. Pt met with his counselor for individual sessions and CD aftercare planning. Accepted CD aftercare with [place], [place] - Medication Discharge Medications: Ambulatory Orders Amlodipine Besylate 5 mg PO DAILY #30 tablet 01/12/18 Amlodipine Besylate [Norvasc -] 10 mg PO DAILY #30 tablet 03/29/20 Carvedilol [Coreg -] 6.25 mg PO BID #60 tablet 03/29/20 - Medication-Assisted Treatment (MAT) Medication-Assisted Treatment (MAT): No - Discharge Instructions Diet, activity, other medical instructions: Diet:DONNA Activity: oob ad judd Other medical instructions:f/u with your PCP, Dr. Jaycee Monson @[address] [place] [address]. [phone]. - Diagnosis (1) Alcohol use disorder Status: Chronic (2) Dry skin Status: Chronic (3) Leg edema, left Status: Chronic (4) Use of cane as ambulatory aid Status: Chronic (5) HTN (hypertension) Status: Chronic Qualifiers: Hypertension type: unspecified Qualified Code(s): I10 - Essential (primary) hypertension (6) Blind right eye Status: Chronic Qualifiers: Left eye visual impairment category: left - unspecified low vision Qualified Code(s): H54.40 - Blindness, one eye, unspecified eye; H54.50 - Low vision, one eye, unspecified eye (7) Obesity (BMI 30-39.9) Status: Chronic - Follow-up Referral Minutes to complete discharge: 30 - AMA Did Patient Leave Against Medical Advice: No Additional Comments: Courtesy Rx electronically sent to [facility] for pt apple picker. Pt to f/u with his PCP for medical management after discharge.
== END 2020-03-30 09:40 | disposition home or self-care (01) | DRG 772 ==
LOC: YASAS 13:50 → Y5N 13:51
PROVIDERS: ADMIT Allergy & Immunology; ATTEND Allergy & Immunology
PROC: HZ42ZZZ Group Counseling for Substance Abuse Treatment, Cognitive-Behavioral (ICD-10-PCS; principal; 2020-03-16)
DX: F10.20 Alcohol dependence, uncomplicated (principal); F12.20 Cannabis dependence, uncomplicated; I10 Essential (primary) hypertension; H54.61 Unqualified visual loss, right eye, normal vision left eye; L85.3 Xerosis cutis; R60.0 Localized edema; E66.9 Obesity, unspecified; Z68.39 Body mass index [BMI] 39.0-39.9, adult; Z99.89 Dependence on other enabling machines and devices
CPT/HCPCS: J0735